=== PATIENT | female | born 1990 | race African-American/Black ===

== ENCOUNTER 2020-03-26 10:44 | Inpatient (IN) | payer OTHER ==
[2020-03-26 11:20] VITALS: BMI 37.3
[2020-03-26] MEDS ORDERED: IBUPROFEN 400 MG TABLET (FP) PO PRN (11:42)
[2020-03-26] MEDS ORDERED: MAGNESIUM HYDROX 2400MG/30ML ORAL SUSPENSION 30 ML CUP PO PRN (11:42)
[2020-03-26] MEDS ORDERED: METHOCARBAMOL 500 MG TABLET PO PRN (11:42)
[2020-03-26] MEDS ORDERED: BISMUTH SUBSALICYLATE 524 MG/30 ML UD PO PRN (11:42)
[2020-03-26] MEDS ORDERED: chlordiazePOXIDE HCL 25 MG CAPSULE PO PRN (11:42)
[2020-03-26] MEDS ORDERED: MAGNESIUM CITRATE 300 ML BOTTLE PO PRN (11:42)
[2020-03-26] MEDS ORDERED: ONDANSETRON *ODT* 4 MG TABLET SL PRN (11:42)
[2020-03-26] MEDS ORDERED: NICOTINE POLACRILEX 2 MG GUM BUC PRN (11:42)
[2020-03-26] MEDS ORDERED: ACETAMINOPHEN 325 MG TABLET (FP) PO PRN ×2 (11:42)
[2020-03-26] MEDS ORDERED: MAG HYDROX/AL HYDROX/SIMETH 30 ML UNIT-DOSE CUP PO PRN (11:42)
[2020-03-26 13:53] LABS: HEMATOCRIT 40.6 % (32.4-45.2); HEMOGLOBIN 13.6 GM/dL (10.7-15.3); MCH 28.7 pg (25.7-33.7); MCHC 33.5 g/dl (32.0-36.0); MEAN CELL VOLUME 85.8 fl (80-96); MEAN PLT VOLUME 8.7 fl (7.5-11.1); PLATELET COUNT 258 K/MM3 (134-434); RBC 4.73 M/mm3 (3.60-5.2); RDW 15.2 % (11.6-15.6); WHITE BLOOD COUNT 6.8 K/mm3 (4.0-10.0)
[2020-03-26 13:56] LABS: POTASSIUM 3.8 mmol/L (3.5-5.1)
[2020-03-26 14:02] LABS: CALCIUM 9.1 mg/dL (8.5-10.1)
[2020-03-26 14:03] LABS: ALBUMIN 3.9 g/dl (3.4-5.0); BLOOD UREA NITROGEN 14.5 mg/dL (7-18)
[2020-03-26 14:05] LABS: CREATININE 0.8 mg/dL (0.55-1.3)
[2020-03-26 14:07] LABS: BILIRUBIN,TOTAL 0.7 mg/dL (0.2-1); TOT PROT 7.6 g/dl (6.4-8.2)
[2020-03-26] MEDS: hydrOXYzine PAMOATE 25 MG CAPSULE (FP) PO SCH ×3 (14:19→22:29)
[2020-03-26] MEDS: chlordiazePOXIDE HCL 25 MG CAPSULE PO SCH ×2 (17:47→22:29)
[2020-03-26] MEDS: THIAMINE HCL 100 MG TABLET (FP) PO SCH (22:29)
[2020-03-26] MEDS: MELATONIN 5 MG TABLETS PO SCH (22:29)
[2020-03-27] MEDS: chlordiazePOXIDE HCL 25 MG CAPSULE PO SCH ×4 (05:56→22:21)
[2020-03-27] MEDS: hydrOXYzine PAMOATE 25 MG CAPSULE (FP) PO SCH ×5 (05:57→22:21)
[2020-03-27] MEDS: PRENATAL VITAMINS W/ FOLIC ACID TABLET (FP) PO SCH (10:34)
[2020-03-27] MEDS: THIAMINE HCL 100 MG TABLET (FP) PO SCH (22:21)
[2020-03-27] MEDS: MELATONIN 5 MG TABLETS PO SCH (22:21)
[2020-03-28] MEDS: chlordiazePOXIDE HCL 25 MG CAPSULE PO SCH ×4 (06:27→22:16)
[2020-03-28] MEDS: hydrOXYzine PAMOATE 25 MG CAPSULE (FP) PO SCH ×5 (06:27→22:18)
[2020-03-28] MEDS: PRENATAL VITAMINS W/ FOLIC ACID TABLET (FP) PO SCH (10:21)
[2020-03-28] MEDS: THIAMINE HCL 100 MG TABLET (FP) PO SCH (22:16)
[2020-03-28] MEDS: MELATONIN 5 MG TABLETS PO SCH (22:16)
[2020-03-29] MEDS ORDERED: chlordiazePOXIDE HCL 10 MG CAPSULE PO PRN
[2020-03-29] MEDS: hydrOXYzine PAMOATE 25 MG CAPSULE (FP) PO SCH ×5 (06:00→22:01)
[2020-03-29] MEDS: chlordiazePOXIDE HCL 10 MG CAPSULE PO SCH ×4 (08:00→22:00)
[2020-03-29] MEDS: PRENATAL VITAMINS W/ FOLIC ACID TABLET (FP) PO SCH (10:26)
[2020-03-29] MEDS ORDERED: ALBUTEROL SO4 HFA INHALER IH PRN (15:38)
[2020-03-29] MEDS: MENTHOL/PHENOL 1 EACH UD MM PRN (20:42)
[2020-03-29] MEDS: MELATONIN 5 MG TABLETS PO SCH (22:01)
[2020-03-29] MEDS: THIAMINE HCL 100 MG TABLET (FP) PO SCH (22:01)
[2020-03-30] MEDS: hydrOXYzine PAMOATE 25 MG CAPSULE (FP) PO SCH ×5 (05:36→22:05)
[2020-03-30] MEDS: chlordiazePOXIDE HCL 10 MG CAPSULE PO SCH ×2 (05:36→17:10)
[2020-03-30] MEDS ORDERED: MASKS NR ONE (09:10)
[2020-03-30] MEDS: PRENATAL VITAMINS W/ FOLIC ACID TABLET (FP) PO SCH (10:05)
[2020-03-30] MEDS: MENTHOL/PHENOL 1 EACH UD MM PRN (11:29)
[2020-03-30] MEDS: MELATONIN 5 MG TABLETS PO SCH (22:05)
[2020-03-30] MEDS: THIAMINE HCL 100 MG TABLET (FP) PO SCH (22:05)
[2020-03-31] MEDS ORDERED: chlordiazePOXIDE HCL 10 MG CAPSULE PO ONE (05:00)
[2020-03-31] MEDS: MENTHOL/PHENOL 1 EACH UD MM PRN (07:27)
[2020-03-31] MEDS: hydrOXYzine PAMOATE 25 MG CAPSULE (FP) PO SCH (07:45)
[2020-03-31 10:00] VITALS: BP 143/68; PULSE 60; TEMP 98.4
== END 2020-03-31 09:15 | disposition home or self-care (01) | DRG 775 ==
LOC: YASAS 10:44 → Y6N 11:26
PROVIDERS: ADMIT Allergy & Immunology; ATTEND Allergy & Immunology
PROC: HZ2ZZZZ Detoxification Services for Substance Abuse Treatment (ICD-10-PCS; principal; 2020-03-26)
DX: F10.230 Alcohol dependence with withdrawal, uncomplicated (principal); F12.20 Cannabis dependence, uncomplicated; F17.210 Nicotine dependence, cigarettes, uncomplicated; J45.909 Unspecified asthma, uncomplicated; H50.10 Unspecified exotropia; E66.9 Obesity, unspecified; Z68.37 Body mass index [BMI] 37.0-37.9, adult; Z59.0 Homelessness; Z56.0 Unemployment, unspecified
CPT/HCPCS: 36415; 71046-TC-FY; 80053; 81025; 85027; 86780; 87389; C9803; U0003